=== PATIENT | male | born 1985 | race African-American/Black ===

== ENCOUNTER 2016-12-07 10:56 | Day surgery (SDC) | payer OTHER ==
[~2016-12-07] VITALS: Ht 177.8 cm; Wt 72.0 kg
[2016-12-07] VITALS (11 sets, daily range): BP systolic 122–152; BP diastolic 77–100; PULSE 18–89; RESP 16–26; Ht 177.8 cm; Wt 72.0 kg
[2016-12-07] MEDS ORDERED: SERT100T PO (11:39)
--- NOTE | 2016-12-07 13:09 | HPN ---
Date/Time of Note Date/Time of Note DATE: 12/07/16 TIME: 13:09 Interval H&P Admission Note Pt. seen H&P reviewed: No system changes JD BENTON DPM Dec 07, 2016 13:09
[2016-12-07] MEDS ORDERED: PROPOFOL 20 ML ONE (13:40)
[2016-12-07] MEDS ORDERED: DEXAMETHASONE 4 MG/ML 1 ML INJ ONE (13:40)
[2016-12-07] MEDS ORDERED: ONDANSETRON 4 MG INJ ONE (13:40)
[2016-12-07] MEDS ORDERED: NEOSTIGMINE 3 MG/3 ML SYRINGE ONE (13:40)
[2016-12-07] MEDS ORDERED: ROCURONIUM 50 MG INJ ONE (13:40)
[2016-12-07] MEDS ORDERED: FENTAnyl 50 MCG/ML VIAL ONE (13:40)
[2016-12-07] MEDS ORDERED: MIDAZOLAM 1 MG/ML 2 ML INJ ONE (13:40)
[2016-12-07] MEDS ORDERED: CEFAZOLIN 1 GM INJ ONE (13:40)
[2016-12-07] MEDS ORDERED: GLYCOPYRROLATE 0.4 MG INJ ONE (13:40)
[2016-12-07] MEDS ORDERED: BUPIVACAINE 0.5% (SDV) 30 ML INJ ONE (13:59)
[2016-12-07] MEDS ORDERED: KETOROLAC 30 MG INJ ONE (14:08)
[2016-12-07] MEDS ORDERED: POVIDONE IODINE 10% 28.4 GM OINT ONE (14:25)
[2016-12-07] MEDS ORDERED: OXYCODONE/ACETAMINOPHEN (5/325) TAB PO PRN ×2 (14:30)
[2016-12-07] MEDS ORDERED: TRIMETHOBENZAMIDE 100 MG/ML VIAL IM PRN (14:30)
[2016-12-07] MEDS ORDERED: EPHEDrine SULFATE 50 MG/5 ML SYG IV PRN (14:30)
[2016-12-07] MEDS ORDERED: MIDAZOLAM 1 MG/ML 2 ML INJ IV PRN (14:30)
[2016-12-07] MEDS ORDERED: HYDROmorphONE (0.2 MG/ML) 10ML SYG IV PRN ×3 (14:30)
[2016-12-07] MEDS ORDERED: ALBUTEROL 0.083% (NEB) 2.5 MG/3 ML AMP HHN PRN (14:30)
[2016-12-07] MEDS ORDERED: LABETALOL HCL 20MG INJ IV PRN (14:30)
[2016-12-07] MEDS ORDERED: DIPHENHYDRAMINE 50 MG INJ IV PRN (14:30)
[2016-12-07] MEDS ORDERED: hydrALAzine 20 MG INJ IV PRN (14:30)
[2016-12-07] MEDS ORDERED: ONDANSETRON 4 MG INJ IV PRN (14:30)
[2016-12-07] MEDS ORDERED: FENTAnyl 50 MCG/ML VIAL IV PRN ×3 (14:30)
[2016-12-07] MEDS ORDERED: MEPERIDINE 25 MG INJ IV PRN (14:30)
[2016-12-07] MEDS ORDERED: IPRATROPIUM (NEB) 0.5 MG/2.5 ML AMP HHN PRN (14:30)
--- NOTE | 2016-12-07 15:04 | SIPON ---
Date/Time of Note Date/Time of Note DATE: 12/07/16 TIME: 15:01 Operative Report Preoperative Diagnosis Karri Durbin preop diagnosis is hallux abductovalgus with bunion right foot is Postoperative Diagnosis Postop diagnosis is same Operation/Procedure Performed Operation is a operation is osteotomy and bunionectomy with fixation first metatarsal right foot Darien osteotomy with fixation proximal phalanx hallux right foot and application of Yevgeniy fix right Surgeon: JD BENTON DPM Anesthesia Type: general Estimated Blood Loss: minimal Transfusion Required: no Specimens Bone Grafts/Implants Screw in the first metatarsal and a staple in the proximal phalanx right foot Complications: no JD BENTON DPM Dec 07, 2016 15:04
--- NOTE | 2016-12-07 15:49 | PREOPHP ---
DATE OF ADMISSION: 12/07/2016 HISTORY OF PRESENT ILLNESS: The patient was admitted to the hospital for elective foot surgery, palliative treatment unsuccessful. The patient has been explained surgery, complications, alternatives, and electing to have elective foot surgery. The patient points to bunion on the right foot. ALLERGIES: THE PATIENT DENIES ANY. MEDICATIONS: Taking Prozac. REVIEW OF SYSTEMS: Negative. Heart, lung, liver, kidney, thyroid, diabetes negative. See any other pertinent history and upper extremity. SOCIAL HISTORY: Negative for smoking. Alcohol, socially only. PHYSICAL EXAMINATION: By Dr. Karri Saha LOWER EXTREMITIES: Physical exam shows DP and PT equal and regular. NEUROLOGICAL: Negative for pathology. DERMATOLOGICAL: Negative for pathology. MUSCULOSKELETAL: Shows hallux abductovalgus with bunion deformity on the right foot. FINAL DIAGNOSIS: Hallux abductovalgus with bunion deformity, right foot. Dictated By: Ken Knapp DPM /[email or web address]/[email or web address] /Document#: [id number] ELDER
--- NOTE | 2016-12-07 22:23 | OPR ---
DATE OF OPERATION: 12/07/2016 PREOPERATIVE DIAGNOSIS: Hallux abductovalgus with bunion deformity, right foot. POSTOPERATIVE DIAGNOSIS: The same. OPERATIVE PROCEDURE: Osteotomy and bunionectomy with fixation of first met of right foot, Darien osteotomy with fixation of proximal phalanx of hallux of right foot, and application of Epifix. SURGEON: Ken Knapp DPM. DESCRIPTION OF OPERATIVE PROCEDURE: Patient was brought to the surgical suite, placed in supine position, and patient was under general anesthesia. The patient had a pneumatic cuff at the mid thigh and patient had sterile prep and drape. The findings were consistent with the pre and postop diagnosis. The first incision was a dorsal medial longitudinal incision over the first metatarsophalangeal joint. Using sharp and blunt dissection, the incision was carried deep. The Bovie was used as necessary. A longitudinal capsulotomy was made over the first metatarsophalangeal joint. The head of the first metatarsal was freed of its attachment and the lateral base of the proximal phalanx was freed and remodeled, and the medial eminence on the first metatarsal was resected. The V-osteotomy was then made with the apex distal and the base proximal, with the apex centered at the head of the first metatarsal. The proximal phalanges were done both at a 60-degree angle. The capital fragment was freed, laterally moved and impacted onto the shaft. The overhang of the shaft was resected. The K-wire was placed across the osteotomy site and held in place, and then measurement was done. A 2.5 x 60 headless screw by [employer] was used. The osteotomy site was held and the area was then cleansed. It was necessary to now do the Darien osteotomy. The shaft of the proximal phalanx was freed of its attachments medially and dorsally. An Darien osteotomy was performed with the base medial and the apex going lateral, approximately 2.5 mm of bone at its widest part resected. Then, the distal part of the proximal phalanx was impacted upon the shaft, upon the proximal part, and a staple, 8 x 8, was then used to stabilize the osteotomy site. The area was flushed and then Epofix was applied to the first metatarsal medial and dorsal aspect. The area was then coapted subcutaneously using 3-0 Vicryl and the skin was coapted using 5- 0 nylon. The area was then injected with 0.5-percent Marcaine and a dressing of half-inch Steri-Strips, Betadine ointment, 4x4s impregnated with Betadine solution and Adriana, with an outer layer of Coban, made into a semi-compressive dressing applied. The patient tolerated surgery well and was returned to recovery room in satisfactory condition. There was minimal blood loss and there were no complications. Dictated By: Ken Knapp DPM /[email or web address]/yolanda /Document#: [id number] ELDER
== END 2016-12-07 17:23 | disposition home or self-care (01) ==
LOC: SDS 10:56
PROVIDERS: ATTEND Podiatrist
DX: M20.11 Hallux valgus (acquired), right foot (principal); M21.611 Bunion of right foot; F41.9 Anxiety disorder, unspecified
CPT/HCPCS: 28296; 88304; 88311; J0690; J1100; J1885; J2250; J2405; J3010; Z7512; Z7610; J2710

== ENCOUNTER 2017-03-14 10:28 | Day surgery (SDC) | payer OTHER ==
[2017-03-13 13:14] VITALS: BMI 20.6
[2017-03-14] VITALS (10 sets, daily range): BP systolic 112–140; BP diastolic 75–110; PULSE 70–96; RESP 15–22; Ht 177.8 cm; Wt 76.6 kg
[~2017-03-14] VITALS: Ht 177.8 cm; Wt 76.6 kg
[~2017-03-14 10:28] MED LIST: SERT100T PO
[2017-03-14] MEDS ORDERED: SERT50TA PO (11:00)
[2017-03-14] MEDS ORDERED: DEXAMETHASONE 4 MG/ML 1 ML INJ ONE ×2 (12:28→13:04)
[2017-03-14] MEDS ORDERED: BUPIVACAINE 0.5% (SDV) 30 ML INJ ONE (12:28)
--- NOTE | 2017-03-14 12:28 | HPN ---
Date/Time of Note Date/Time of Note DATE: 03/14/17 TIME: 12:28 Interval H&P Admission Note Pt. seen H&P reviewed: No system changes JD BENTON DPM Mar 14, 2017 12:28
[2017-03-14] MEDS ORDERED: MIDAZOLAM 1 MG/ML 2 ML INJ ONE (12:36)
[2017-03-14] MEDS ORDERED: LIDOCAINE 2% (SDV) 5 ML INJ ONE (12:36)
[2017-03-14] MEDS ORDERED: PROPOFOL 20 ML ONE (12:36)
[2017-03-14] MEDS ORDERED: ROCURONIUM 50 MG INJ ONE (12:36)
[2017-03-14] MEDS ORDERED: CEFAZOLIN 1 GM INJ ONE (12:46)
[2017-03-14] MEDS ORDERED: FENTAnyl 50 MCG/ML VIAL ONE (12:56)
[2017-03-14] MEDS ORDERED: POVIDONE IODINE 10% 28.4 GM OINT ONE (13:01)
[2017-03-14] MEDS ORDERED: ONDANSETRON 4 MG INJ ONE (13:04)
[2017-03-14] MEDS ORDERED: HYDROmorphONE (0.2 MG/ML) 10ML SYG IV PRN ×2 (13:30)
[2017-03-14] MEDS ORDERED: SUGAMMADEX SODIUM 200 MG/2 ML VIAL IV ONE (13:42)
[2017-03-14] MEDS ORDERED: FLUMAZENIL 0.5 MG INJ ONE (13:59)
--- NOTE | 2017-03-14 14:06 | SIPON ---
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
--- NOTE | 2017-03-14 18:56 | PREOPHP ---
DATE OF ADMISSION: 03/14/2017 REASON FOR ADMISSION: The patient is being admitted to the hospital for elective foot surgery. Palliative treatment, unsuccessful. The patient has been explained surgery, complications, alternatives, and elected to have elective foot surgery. Patient's pain is to the bunion on the left foot. ALLERGIES: PATIENT DENIES ANY. MEDICATIONS: Patient is taking Prozac. REVIEW OF SYSTEMS: Negative heart, lung, liver, kidney, thyroid, diabetes. See any other pertinent history in upper extremity. Physical examination by Dr. Saha. SOCIAL HISTORY: Negative for smoking. Alcohol socially only. PHYSICAL EXAMINATION: EXTREMITIES: Lower extremities shows equal and regular DP and PT. NEUROLOGIC: Negative for pathology. DERMATOLOGIC: Negative for pathology. MUSCULOSKELETAL: Hallux abductovalgus with bunion deformity of left foot. FINAL DIAGNOSIS: Hallux abductovalgus with bunion deformity, left foot. Dictated By: Ken Knapp DPM /[email or web address] /Document#: [id number] ELDER
--- NOTE | 2017-03-14 19:21 | OPR ---
DATE OF OPERATION: 03/14/2017 PREOPERATIVE DIAGNOSIS: Hallux abductovalgus with bunion, left foot. POSTOPERATIVE DIAGNOSIS: Hallux abductovalgus with bunion, left foot. OPERATION PERFORMED: Osteotomy and bunionectomy with fixation of the 1st metatarsal, left foot, Darien osteotomy with fixation of proximal phalanx of the hallux, left foot, and application of EpiFix. SURGEON: Arun Knapp DPM OPERATIVE PROCEDURE: Patient was brought to the surgical suite, placed in supine position, and the patient was under general anesthesia. The patient had a pneumatic cuff at the midthigh and patient had sterile prep and drape. The findings were consistent with the pre and postoperative diagnosis. The 1st incision was a dorsal medial longitudinal incision over the 1st metatarsophalangeal joint. Using sharp and blunt dissection, incision was carried deep, the Bovie was used as necessary. A longitudinal capsulotomy was made over the 1st metatarsal joint. The head of the 1st metatarsal was freed of its attachments and the lateral base of the proximal phalanx was freed and remodeled. The medial eminence on the 1st metatarsal was resected. The V osteotomy was then made with the apex distal and base proximal with the apex centered at the head of the 1st metatarsal. The proximal phalanx were done both seated at a 60 degree angle to each other going plantarly, proximally, distally. The capital fragment was freed, laterally moved, and impacted onto the shaft. The overhang of the shaft was resected, a K-wire was placed across the osteotomy site and held in place, and then the measurement was done. A 2.5 by 14 mm [place] headless screw was used, the ostomy site was held, and the area was then cleansed. It was necessary now to do the Darien osteotomy. The shaft of the proximal phalanx was freed of its attachments medially and dorsally and Darien osteotomy was performed with the base medial and the apex going laterally approximately, 2.5 to 3 mm of bone at its widest part was resected. Then the distal part of the proximal phalanx was impacted upon the shaft, upon the proximal part, and a staple of 8.58, right staple, was then used to stabilize the osteotomy site. The area was flushed and then EpiFix was applied to the 1st metatarsal medially and dorsal aspect, and the area was then coapted subcutaneously using 3-0 Vicryl and the skin was coapted using 5-0 nylon. The area was then injected with 0.5 percent Marcaine and a dressing of half inch Steri-Strips, Betadine ointment, 4 by 4s impregnated with Betadine solution and Adriana with an outer layer of Coban made into a semicompressive dressing was applied. The patient tolerated surgery well and was returned to recovery room in satisfactory condition. There was minimum blood loss. There were no complications. Dictated By: Ken Knapp DPM /[email or web address] /Document#: [id number] ELEDR
== END 2017-03-14 15:50 | disposition home or self-care (01) ==
LOC: SDS 10:28
PROVIDERS: ATTEND Podiatrist
DX: M20.12 Hallux valgus (acquired), left foot (principal); M21.612 Bunion of left foot
CPT/HCPCS: 28298; 88304; 88311; J0690; J2250; J3010; Z7512; Z7610; J1100; J2405